=== PATIENT | male | born 1990 | race Caucasian/White ===

== ENCOUNTER 2022-11-04 07:30 | Outpatient (RCR) | payer BC, SELFPAY | END 2023-01-17 10:31 | disposition home or self-care (01) | PROVIDERS: PCP Family Medicine; Visit Provider Family Medicine | DX: M25.552 Pain in left hip (principal); M25.551 Pain in right hip; Z51.89 Encounter for other specified aftercare | CPT/HCPCS: 97110; 97140; 97161 ==